=== PATIENT | female | born 1955 | race Caucasian/White ===

== ENCOUNTER → 2017-05-25 08:40 | Outpatient (CLI) | payer MEDICAID, SELFPAY ==
--- NOTE | 2017-05-25 09:30 | RAD_ITS ---
PROCEDURE: Fluoroscopic guided left shoulder Injection DATE: May 25, 2017. INDICATION: Female, 62 years old. Left shoulder pain. PHYSICIAN: Tushar Covington M.D. MEDICATIONS: 12 mg on that a methicillin and 4 cc of 1% lidocaine. 2% Lidocaine administered subcutaneously for local anesthesia. ACCESS SITE: Left shoulder. NEEDLE: 22-gauge spinal needle. FLUOROSCOPY TIME (if supplied): (0:35) minutes/seconds FINDINGS: The risks, benefits, and alternatives to the procedure were explained to the patient. The specific risks of bleeding, infection, and neurovascular injury were detailed and accepted. Witnessed informed consent was obtained. A 22-gauge spinal needle was positioned under radiographic fluoroscopic localization. Approximately 2 cc of Isovue-300 instilled for localization purposes. Medication was then injected. The patient tolerated the procedure well without any immediate complications. The patient was placed supine with head elevated and returned to the floor in stable condition. RAD/Inj/Asp Tod Jt Should/Hip/Knee IMPRESSION: 1. Successful fluoroscopic guided left shoulder injection. Electronically Signed: Tushar Covington MD at 10:21 EST Tel [phone], Service support ,
== END ==
PROVIDERS: Family Provider Family Medicine; PCP Family Medicine; Visit Provider Specialist
DX: M19.012 Primary osteoarthritis, left shoulder (principal)
CPT/HCPCS: 20610; 77002; J0702

== ENCOUNTER 2017-11-09 20:50 | Emergency (ER) | payer MEDICAID, SELFPAY ==
[2017-11-09 20:53] VITALS: BP 158/113; PULSE 90; RESP 18; TEMP 36.9; O2SAT 95; BMI 33.3
--- NOTE | 2017-11-09 20:54 | RAD_ITS ---
STUDY: X-RAY - RIGHT FOOT CLINICAL: Female, 62 years old. Trauma. Pain in fifth toe TECHNIQUE: 3 view(s) of the foot. COMPARISON: None. FINDINGS: There is no evidence of fracture or dislocation. There is a plantar calcaneal spur noted. There are no radiodense foreign bodies. RAD/Foot min 3 Views IMPRESSION: No fracture or dislocation. Plantar calcaneal spur. Electronically Signed: Ish Kaur, at 21:20 EDT Tel , Service support ,
[2017-11-09 21:11] VITALS: RESP 18
--- NOTE | 2017-11-09 21:55 | ED.VISSUMM ---
- ER Visit Summary Date of Service: 11/09/17 Chief Complaint: She presents with right foot pain after twist last night. She did fall has a left forearm abrasion but no significant pain in that region. No head injury. No loss consciousness. She feels normal other than the foot pain. Physical Examination: Normal exam, neurologically intact, no C-spine tenderness. Clear lungs. She has a small abrasion over left forearm. She has tenderness over the proximal fifth metatarsal region of her right foot. No ankle pain no knee pain no proximal fibular tenderness. Neurovascularly intact. Emergency Department Course and Treatment: X-rays negative patient will be treated with a postop shoe and analgesia he will be discharged stable condition follow-up with PCP Her stable condition Impression: [Right foot strain] This note was generated with [employer] dictation software. It may contain incorrect words, spelling, and punctuation that were not noted in review of the chart prior to signing ED Disposition - Plan for ED Patient: Disposition: Home or Assisted Living Chief Complaint: Lower Extremity Injury Instructions: ED Contusion Lower Ext Referrals: Alonzo Hahn DO [Primary Care Provider] - 3-5 Days
[2017-11-09] MEDS: HYDROcodone Bitartrate/Apap 5/325 Tablet PO (22:01)
[2017-11-09 22:04] VITALS: RESP 16
== END 2017-11-09 22:05 | disposition home or self-care (01) ==
PROVIDERS: Emergency Provider Emergency Medicine; Family Provider Family Medicine; PCP Family Medicine
DX: S96.911A Strain of unspecified muscle and tendon at ankle and foot level, right foot, initial encounter (principal); W01.10XA Fall on same level from slipping, tripping and stumbling with subsequent striking against unspecified object, initial encounter; Y93.9 Activity, unspecified; Y92.9 Unspecified place or not applicable; Y99.9 Unspecified external cause status; I10 Essential (primary) hypertension; J45.909 Unspecified asthma, uncomplicated
CPT/HCPCS: 73630; 99283

== ENCOUNTER 2017-11-12 17:15 | Emergency (ER) | payer MEDICAID, SELFPAY ==
[2017-11-12] VITALS (8 sets, daily range): BP systolic 87–182; BP diastolic 38–109; PULSE 86–113; RESP 14–20; TEMP 37.3; O2SAT 95–99; BMI 33.3
--- NOTE | 2017-11-12 17:55 | ED.VISSUMM ---
- ER Visit Summary Date of Service: 11/12/17 Chief Complaint: Suicidal ideation History of Present Illness: The patient is a 62 F presenting with suicidal ideation. She states that she is depressed and feeling overwhelmed. She states that she has had suicidal thoughts but denies plan. She has been fighting with her boyfriend. He states she has financial problems. She talked to the counseling center and was advised to come to the ED. States she does not want to go on. She had an overdose at age 58. She denies overdose today. Denies other complaints. Physical Examination: Vitals are stable. Patient is afebrile. Alert no acute distress. HEENT exam is unremarkable. Neck is supple. Lungs are clear and equal bilaterally. Heart is regular rate and rhythm. Abdomen is soft nontender nondistended. Extremities are unremarkable. Skin is warm and dry. No focal neurologic deficit. Depressed affect, suicidal ideation Remainder of exam is unremarkable. Emergency Department Course and Treatment: CBC, chemistries unremarkable other than BUN 19. Tox positive for barbiturates, benzos, cocaine. Alcohol negative. Patient is given Ativan and Vistaril for anxiety while in the emergency department. Discussed with counseling center for evaluation. Disposition: Per counseling center Impression: Suicidal ideation, anxiety This note was generated with [employer] dictation software. It may contain incorrect words, spelling, and punctuation that were not noted in review of the chart prior to signing ED Disposition - Plan for ED Patient: Chief Complaint: Mental Health Referrals: Alonzo Hahn DO [Primary Care Provider] -
[2017-11-12 18:15] LABS: Absolute Lymphocyte Count 3.49 X10^3/ul (0.83-4.51); Absolute Neutrophil Count 6.2 X10^3/uL (2.0-7.7); Basophil# 0.04 X10^3/uL; Basophil% 0.4 % (0-1); Eosinophil# 0.46 X10^3/uL; Eosinophils% 4.2 % (0-5); Hematocrit 44.7 % (37-47); Hemoglobin 14.8 g/dl (12.0-15.0); Lymphocyte # 3.49 X10^3/ul (4.0); Lymphocyte % 32.1 % (19-41); Mean Corp Hgb Conc 33.1 g/gl (32-36); Mean Corpuscular Hgb 31.3 pg (27.0-32.0); Mean Corpuscular Volume 94.5 fL (81-99); Mean Platelet Vol. 9.9 fl (6.2-12.0); Monocyte# 0.61 X10^3/uL; Monocyte% 5.6 % (0-10); Neutrophil # 6.18 X10^3/uL (2.7-7.7); Platelet Count 249 K/mm3 (150-450); RBC Distribution Width CV 13.5 % (11.6-14.6); RBC Distribution Width SD 46.5 fl (35.1-43.9); Red Blood Count 4.73 M/mm3 (4.2-5.4); White Blood Count 10.9 K/mm3 (4.4-11.0)
[2017-11-12 18:19] LABS: POSITIVE COUNT NO; POSITIVE DIFFERENTIAL NO; POSITIVE MORPHOLOGY NO
[2017-11-12 18:24] LABS: Anion Gap 5 (5-15); BUN 19 mg/dL (7-18); BUN/Creat Ratio 18.6 RATIO (10-20); Calcium,Total 8.6 mg/dL (8.5-10.1); Chloride 107 mmol/L (98-107); Creatinine, Serum 1.02 mg/dL (0.55-1.02); EST Glomerular Filtration Rate 58 mL/min (>60); Est Glom Filt Rate - Afr Amer 70 mL/min (>60); Estimated Creatinine Clearance 44.07 ml/min; Glucose 91 mg/dL (74-106); Potassium 4.1 mmol/L (3.5-5.1); Sodium Level 143 mmol/L (136-145)
[2017-11-12 18:35] LABS: Alcohol, Blood (Medical)-Serum < 3.0 mg/dL
[2017-11-12 18:40] LABS: Pregnancy, Serum, hCG Quali. NEGATIVE Negative (0-9 Nonpreg)
[2017-11-12] MEDS: LORazepam 1 MG Tablet PO (19:22)
[2017-11-12 20:24] LABS: Amphetamine Urine VISTA NEGATIVE (<1000 ng/mL); Barbiturate Urine VISTA POSITIVE (< 200 ng/mL); Benzodiazepine Urine VISTA POSITIVE (< 200 ng/mL); Cocaine Urine VISTA POSITIVE (< 300 ng/mL); Ecstacy Urine VISTA NEGATIVE (< 500 ng/mL); Methadone Urine VISTA NEGATIVE (< 300 ng/mL); PCP Urine VISTA NEGATIVE (< 25 ng/mL); THC Urine VISTA NEGATIVE (< 50 ng/mL); Vista UDS pH Range 5
[2017-11-13] VITALS: RESP 16
[2017-11-13] MEDS: LORazepam 1 MG Tablet PO (01:23)
--- NOTE | 2017-11-13 03:40 | NURSING ---
JJ SANTANA DOESN'T HAVE AVAILABILITY TILL NOON DID SET UP TRANSPORT THOUGH.
[2017-11-13 03:52] VITALS: PULSE 87; RESP 18; O2SAT 98
--- NOTE | 2017-11-13 05:04 | NURSING ---
6 attempts made to call report to [facility]
[2017-11-13 05:41] VITALS: BP 101/57; PULSE 76; RESP 18; TEMP 36.8; O2SAT 94
[2017-11-13 06:09] VITALS: BP 181/90; PULSE 76; RESP 18; O2SAT 97
[2017-11-13 07:00] VITALS: BP 166/97; PULSE 99; RESP 20; O2SAT 93
[2017-11-13] MEDS: amLODIPine 10 MG Tablet PO (07:25)
[2017-11-13] MEDS: Sertraline 50 MG Tablet PO (07:26)
[2017-11-13] MEDS: Lisinopril 20 MG Tablet PO (07:26)
== END 2017-11-13 07:44 ==
PROVIDERS: Emergency Provider Emergency Medicine; Family Provider Family Medicine; PCP Family Medicine
DX: R45.851 Suicidal ideations (principal); F41.9 Anxiety disorder, unspecified
CPT/HCPCS: 36415; 80048; 80307; 80320; 84703; 85025; 99285; G0480

== ENCOUNTER 2017-12-20 14:59 | Inpatient (IN) | payer MEDICAID, SELFPAY ==
[2017-12-20] VITALS (13 sets, daily range): BP systolic 106–167; BP diastolic 62–99; PULSE 91–122; RESP 14–28; TEMP 37.4–39.1; O2SAT 91–98; BMI 32.1; BMI 32.2; BMI 35.9
--- NOTE | 2017-12-20 15:12 | EKG12_ITS ---
Test Reason : Blood Pressure : / mmHG Vent. Rate : 114 BPM Atrial Rate : 114 BPM P-R Int : 124 ms QRS Dur : 084 ms QT Int : 308 ms P-R-T Axes : 036 065 060 degrees QTc Int : 424 ms Sinus tachycardia Nonspecific T wave abnormality Confirmed by TONY JONES, EVI ([id number]), editor at large HITESH MICHELLE ([id number]) on 12/23/2017 2:35:06 PM Referred By: Britni Bowman Confirmed By:EVI JIMENEZ MD
[2017-12-20 15:44] LABS: Mucous, Urine 0 SEEN /hpf (<or=2+); Red Blood Cells-Urine 0 SEEN /hpf (0-5)
[2017-12-20 15:50] LABS: Glucose, Dipstick Normal (Normal); Ketone-Dipstick Negative (Negative); Leukocyte Esterase-Dipstick 500 /ul (Negative); Nitrite-Dipstick Positive (Negative); Occult Blood-Urine 150 /ul (Negative); Protein-Dipstick 100 mg/dl (Negative); Urine Bilirubin Dipstick Negative (Negative); Urine Urobilinogen Normal (Normal); Urine pH 6.5 (5.0 - 8.0)
[2017-12-20 15:53] LABS: Color, Urine YELLOW (Yellow); Urine Clarity Cloudy (Clear)
[2017-12-20 15:59] LABS: White Blood Cells >100 SEEN /hpf (0-5)
[2017-12-20 16:00] LABS: Bacteria 3+ /hpf (None Seen); Squamous Epithelial Cells - UA 0-5 SEEN /hpf (5-10)
[2017-12-20 16:01] LABS: Transitional Epithelial - Ur 0 SEEN /hpf (0-5)
[2017-12-20] MEDS: Acetaminophen 325 MG Tablet 650 MG PO ×2 (16:22→23:41)
[2017-12-20] MEDS: 0.9% Normal Saline 1,000 ML 250 ML IV ×2 (16:22→19:11)
[2017-12-20 16:29] LABS: Absolute Lymphocyte Count 1.26 X10^3/ul (0.83-4.51); Absolute Neutrophil Count 16.7 X10^3/uL (2.0-7.7); Basophil# 0.01 X10^3/uL; Basophil% 0.1 % (0-1); Eosinophil# 0.04 X10^3/uL; Eosinophils% 0.2 % (0-5); Hemoglobin 12.1 g/dl (12.0-15.0); Lymphocyte # 1.26 X10^3/ul (4.0); Lymphocyte % 6.5 % (19-41); Mean Corp Hgb Conc 34.6 g/gl (32-36); Mean Corpuscular Hgb 31.7 pg (27.0-32.0); Mean Corpuscular Volume 91.6 fL (81-99); Mean Platelet Vol. 9.5 fl (6.2-12.0); Monocyte# 1.22 X10^3/uL; Monocyte% 6.3 % (0-10); Neutrophil # 16.68 X10^3/uL (2.7-7.7); Platelet Count 248 K/mm3 (150-450); RBC Distribution Width CV 13.1 % (11.6-14.6); RBC Distribution Width SD 43.7 fl (35.1-43.9); Red Blood Count 3.82 M/mm3 (4.2-5.4); White Blood Count 19.4 K/mm3 (4.4-11.0)
[2017-12-20 16:32] LABS: POSITIVE COUNT NO; POSITIVE DIFFERENTIAL NO; POSITIVE MORPHOLOGY NO
[2017-12-20 16:36] LABS: International Normalized Ratio 1.1; Prothrombin Time (Protime)PT. 13.8 SECONDS (11.7-14.9)
[2017-12-20 16:37] LABS: Partial Thromboplast Time 31.9 Seconds (24.1-36.2)
[2017-12-20 16:39] LABS: ALB/GLOB Ratio 0.5 RATIO (0.9-2.4); AST(SGOT) 17 U/L (15-37); Alanine Aminotransfer ALT/SGPT 32 U/L (13-56); Albumin, Serum 2.5 g/dL (3.2-5.0); Alkaline Phosphatase 148 U/L (45-117); Anion Gap 10 (5-15); BUN 24 mg/dL (7-18); BUN/Creat Ratio 17.4 RATIO (10-20); Calcium,Total 8.1 mg/dL (8.5-10.1); Chloride 101 mmol/L (98-107); Creatinine, Serum 1.38 mg/dL (0.55-1.02); EST Glomerular Filtration Rate 41 mL/min (>60); Est Glom Filt Rate - Afr Amer 49 mL/min (>60); Estimated Creatinine Clearance 32.57 ml/min; Globulin 4.7 g/dL (2.2-4.2); Glucose 114 mg/dL (74-106); Potassium 3.4 mmol/L (3.5-5.1); Protein, Total 7.2 g/dL (6.4-8.2); Sodium Level 132 mmol/L (136-145)
[2017-12-20] MEDS: Ceftriaxone 1 GM/50 ML BAG IV (16:49)
--- NOTE | 2017-12-20 17:22 | ED.DCSUM_ITS ---
- ER Visit Summary Date of Service: 12/20/17 Chief Complaint: Fever, chills urinary symptoms and back pain History of Present Illness: The patient is a 62 F who presents with infectious symptoms that started 5 days ago. She complains of dysuria, frequency, urgency and fever. She now complains of back/flank pain. She reports nausea without vomiting or diarrhea. She does complain of mild bifrontal headache. She denies photophobia, neck pain or neck stiffness. She denies any ocular, visual or auditory symptoms. She does report palpitations. She reports dyspnea, cough. The cough is nonproductive. She has history of COPD. She does complain of generalized weakness and depression. Past medical history COPD, hypertension, depression and osteoarthritis Physical Examination: Vital signs remarkable for a blood pressure 167/99 temperature 101.3 heart rate of 122 and respiratory rate of 28. She does appear ill. Head is atraumatic normocephalic. Pupils are equal round reactive. Extraocular muscles are intact. TMs are pearly white with landmarks noted. Nares patent with no drainage. Posterior pharynx without erythema or exudate. Uvula is midline. There is no dysphonia or dysphasia. Trachea is midline. There is no stridor with auscultation of the neck. Heart is rapid and regular without murmur, gallop or rub. Lungs reveal no wheeze, rales or rhonchi. Abdomen is remarkable for superpubic tenderness. There is right CVA tenderness. There is no evidence of cellulitis or decubiti. Neuro exam is nonfocal. She has a depressed affect. Test Results: White count is elevated 19.4 thousand with 86 segs. Electro panel reveals mild abnormalities with a sodium 132, potassium 3.4, BUN 24 and a creatinine 1.38. Creatinine on November 12, 2017 was 1.02. Albumin is low, 2.5 coags normal. Urine is positive for leukoesterase nitrites and blood with greater than 100 WBCs and 3+ bacteria. Emergency Department Course and Treatment: Patient meets sepsis criteria. Lactate and blood cultures were obtained because of concern for severe sepsis. She received 1 L of normal saline and 1 g of Rocephin. I was informed at 1710 that she is having increased back pain and she was administered 2 mg of morphine. Limited opiate use in light of recent positive tox screen. She also received 650 mg of Tylenol upon presentation. Treatment Plan: Patient will require admission for IV antibiotics Disposition: Disposition after lactate has been resulted since this will determine appropriate unit. Impression: 1. Urosepsis 2. Sinus tachycardia documented on EKG 3. Acute renal insufficiency 4. Mild hypokalemia 5. Mild hyponatremia 6. Malnutrition 7. Asymptomatic hypertension in a hypertensive patient This note was generated with [employer] dictation software. It may contain incorrect words, spelling, and punctuation that were not noted in review of the chart prior to signing ED Disposition - Plan for ED Patient: Chief Complaint: Nausea/Vomiting Referrals: Alonzo Hahn DO [Primary Care Provider] -
[2017-12-20] MEDS: Morphine 2 MG/ML Syringe IV (17:23)
[2017-12-20 17:53] LABS: Lactic Acid 0.6 mmol/L (0.4-2.0)
--- NOTE | 2017-12-20 18:56 | HP.PCM_ITS ---
Problem List (1) Sepsis Status: Acute Qualifiers: Sepsis type: sepsis due to unspecified organism Qualified Code(s): A41.9 - Sepsis, unspecified organism (2) UTI (urinary tract infection) Status: Acute Qualifiers: Urinary tract infection type: acute cystitis (3) YONIS (acute kidney injury) Status: Acute (4) COPD (chronic obstructive pulmonary disease) Status: Chronic Qualifiers: COPD type: unspecified COPD Qualified Code(s): J44.9 - Chronic obstructive pulmonary disease, unspecified (5) GERD (gastroesophageal reflux disease) Status: Chronic Qualifiers: Esophagitis presence: esophagitis presence not specified Qualified Code(s) : K21.9 - Gastro-esophageal reflux disease without esophagitis (6) OA (osteoarthritis) of knee Status: Chronic Qualifiers: Osteoarthritis type: unspecified Laterality: unspecified laterality Qualified Code(s): M17.10 - Unilateral primary osteoarthritis, unspecified knee (7) HTN (hypertension) Status: Chronic Qualifiers: Hypertension type: essential hypertension Qualified Code(s): I10 - Essential (primary) hypertension (8) Mixed anxiety and depressive disorder Status: Chronic (9) Obesity Status: Chronic Qualifiers: Obesity type: due to excess calories Obesity classification: adult class 1 (BMI 30 - 34.9) (10) Nicotine dependence Status: Chronic Qualifiers: Nicotine product type: cigarettes (11) history of polysubstance abuse Status: Chronic History of Present Illness Date of Admission: 12/20/17 Chief Complaint: Malaise, weakness, debility, Dysuria, F/C The patient is a 62 y/o F w/ PMHs: Chronic COPD, Ongoing Tobacco Use, HTN, Anxiety and Depression, Obesity who presents to the [facility] ED on 12/20/17 with history of approximately 6 day history of ongoing mild bilateral temporal headache, malaise, fatigue with dysuria with pressure sensation as well as frequency and suprapubic discomfort with onset of fever and chills over the last 24 hours prompting ED evaluation. The emergency room workup included T102.3 upon presentation--> 100.3 following Tylenol, heart rate 109, BP 132/92, respiratory rate initially 28--> 16, 96% on room air, CBC with WBC 19.4, hemoglobin 1312.1, platelet 248 with left shift, unremarkable coags, CMP with sodium 132, potassium 3.4, BUN 24/creatinine 1.38, glucose 114, lactic acid 0.6 , alkaline phosphatase 148, urinalysis remarkable and concerning for urinary tract infection with pending urine culture and blood culture ?2 per ED. In the emergency room patient administered normal saline 1 L, morphine 2 mg IV ?1, IV Rocephin in addition to oral Tylenol. Past Medical History Past Medical History (Chronic Problems): Chronic Problems Depression (Chronic) COPD (chronic obstructive pulmonary disease) (Chronic) GERD (gastroesophageal reflux disease) (Chronic) OA (osteoarthritis) of knee (Chronic) HTN (hypertension) (Chronic) Mixed anxiety and depressive disorder (Chronic) Obesity (Chronic) Nicotine dependence (Chronic) history of polysubstance abuse (Chronic) Allergies codeine Allergy (Verified 11/12/17 17:17) Anaphylaxis CHEST PAIN fentanyl Allergy (Verified 11/12/17 17:17) Rash ketorolac tromethamine [From Toradol] Allergy (Verified 11/12/17 17:17) Hives metoclopramide HCl [From Reglan] Allergy (Verified 11/12/17 17:17) Swelling promethazine HCl [From Phenergan] Allergy (Verified 11/12/17 17:17) Itching cyclobenzaprine HCl [From Flexeril] Adverse Reaction (Verified 11/12/17 17:17) Other MAKES LEGS AND ARMS FEEL LIKE THEY'RE CRAWLING diphenhydramine HCl [From Benadryl] Adverse Reaction (Verified 11/12/17 17:17) Other MAKES LEGS CRAWL Penicillins Adverse Reaction (Verified 11/12/17 17:17) Nausea Sulfa (Sulfonamide Antibiotics) Adverse Reaction (Verified 11/12/17 17:17) Nausea Home Medications: Ambulatory Orders Medication Instructions Recorded Amlodipine [Norvasc] 10 mg PO DAILY 10/05/16 Lisinopril [Zestril] 20 mg PO DAILY 10/05/16 Sertraline HCl [Zoloft] 50 mg PO DAILY 01/22/17 Zolpidem Tartrate [Ambien] 10 mg PO QHS PRN 12/20/17 Surgical History: cholecystectomy, hysterectomy, tonsillectomy, - - R Shoulder surgery, Arthroscopic knee surgery, R TKR. 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 Tobacco Use: Cigarettes Alcohol: Sober - Sober ?2 years. Drugs: - - Prior history of cocaine usage, clean ?2 years. - *Family History Maternal History Items: Stroke Paternal History Items: - - Father with a history of hypertension, heart disease and [place]. Review of Systems Constitutional: Reports: Anorexia, Chills, Fever, Malaise, Weakness, Fatigue. Denies: Weight Change HEENT: Reports: Head Aches. Denies: Sinus Congestion, Sinus Drainage Cardiovascular: Denies: Chest Pain, Palpitations Respiratory: Denies: Cough, Shortness of breath at rest, Sputum production Gastrointestinal: Reports: Abdominal Pain, Nausea. Denies: Vomiting Genitourinary: Denies: Dysuria Musculoskeletal: Reports: Back Pain. Denies: Joint Pain, Joint Tenderness Skin: Denies: Rash, Wounds Neurological: Denies: Numbness, Tingling, Focal weakness Psychiatric: Reports: Anxiety, Depression. Denies: Homicidal Ideations, Suicidal Ideations Hematologic/ Lymphatic: Denies: Easy Bruising, Easy Bleeding VTE Information - Inpt Only VTE Present on Admission: No VTE Mechan Device Prophylaxis: SCD's VTE Pharm Prophylaxis ordered?: Yes Patient Problems: Active and Suspected Problems Sepsis (Acute) UTI (urinary tract infection) (Acute) YONIS (acute kidney injury) (Acute) Subjective: Laying in the ED bed, fatigued appearance, notes ongoing suprapubic discomfort with ED placed Rudd catheter noted. Objective: Physical Examination: General: awake, alert, oriented x 3 and cooperative, seated upright in the ED bed in no apparent distress notably fatigued and ill-appearing. Skin: normal color, turgor, no icterus, cyanosis. HEENT: AT/NC, EOMI, PERRLA, dry MM, no carotid bruits or JVD noted. Lungs: CTA bilaterally, moderate effort, mild decrease BL bases, no rales, ronchi or wheezing. Heart: Tachycardiac with regular rhythm; no gallop, rub audible. Abdomen: soft, obese, suprapubic TTP, ND, normal BS, no HSM. Extremities: no cyanosis, clubbing, or edema. Neurological: patient awake, alert, oriented x 3; cognitive function intact; pupils equally reactive to light and accomodation; cranial nerves II-XII grossly normal, moving all 4 extremities, no focal deficits, strength severely globally decreased secondary to acute presentation. Psychiatric: affect appears flat, no acute evidence of depressive or anxiety feelings. - Physical Exam Vital Signs Temp Pulse Resp BP Pulse Ox 102.3 F H 91 19 H 128/65 H 95 12/20/17 16:24 12/20/17 18:03 12/20/17 18:03 12/20/17 18:03 12/20/17 18:03 Oxygen Flow Rate (L/min) 2 Oxygen Delivery Method Room Air Weight: 176 lb Body Mass Index (BMI) 32.1 Laboratory Tests Past 24 Hrs 12/20/17 12/20/17 12/20/17 15:35 16:12 16:12 WBC 19.4 H RBC 3.82 L Hgb 12.1 Hct 35.0 L MCV 91.6 MCH 31.7 MCHC 34.6 RDW 13.1 RDW Differential 43.7 Plt Count 248 MPV 9.5 Immature Gran % (Auto) 0.900 Neut % (Auto) 86.0 H Lymph % (Auto) 6.5 L Ness % (Auto) 6.3 Eos % (Auto) 0.2 Baso % (Auto) 0.1 Absolute Neuts (auto) 16.7 H Absolute Lymphs (auto) 1.26 Total Counted Not Reportable PT 13.8 INR 1.1 APTT 31.9 Sodium Potassium Chloride Carbon Dioxide Anion Gap BUN Creatinine Estim Creat Clear Calc Est GFR (MDRD) Af Amer Est GFR (MDRD) Non-Af BUN/Creatinine Ratio Glucose Lactic Acid Calcium Total Bilirubin AST ALT Alkaline Phosphatase Total Protein Albumin Globulin Albumin/Globulin Ratio Urine Color YELLOW Urine Clarity Cloudy Urine pH 6.5 Ur Specific Trilla 1.010 Urine Protein 100 H Urine Glucose (UA) Normal Urine Ketones Negative Urine Occult Blood 150 H Urine Nitrite Positive H Urine Bilirubin Negative Urine Urobilinogen Normal Ur Leukocyte Esterase 500 H Urine RBC 0 SEEN Urine WBC >100 SEEN Ur Squamous Epith Cells 0-5 SEEN Ur Transition Epith Cell 0 SEEN Urine Bacteria 3+ Urine Mucus 0 SEEN 12/20/17 12/20/17 12/20/17 16:12 16:12 17:25 WBC RBC Hgb Hct MCV MCH MCHC RDW RDW Differential Plt Count MPV Immature Gran % (Auto) Neut % (Auto) Lymph % (Auto) Ness % (Auto) Eos % (Auto) Baso % (Auto) Absolute Neuts (auto) Absolute Lymphs (auto) Total Counted PT INR APTT Sodium 132 L Potassium 3.4 L Chloride 101 Carbon Dioxide 21.0 Anion Gap 10 BUN 24 H Creatinine 1.38 H Estim Creat Clear Calc 32.57 Est GFR (MDRD) Af Amer 49 L Est GFR (MDRD) Non-Af 41 L BUN/Creatinine Ratio 17.4 Glucose 114 H Lactic Acid Cancelled 0.6 Calcium 8.1 L Total Bilirubin 0.50 AST 17 ALT 32 Alkaline Phosphatase 148 H Total Protein 7.2 Albumin 2.5 L Globulin 4.7 H Albumin/Globulin Ratio 0.5 L Urine Color Urine Clarity Urine pH Ur Specific Trilla Urine Protein Urine Glucose (UA) Urine Ketones Urine Occult Blood Urine Nitrite Urine Bilirubin Urine Urobilinogen Ur Leukocyte Esterase Urine RBC Urine WBC Ur Squamous Epith Cells Ur Transition Epith Cell Urine Bacteria Urine Mucus Assessment/Plan All Active Problems Sepsis (Acute) UTI (urinary tract infection) (Acute) YONIS (acute kidney injury) (Acute) Acute exacerbation of chronic obstructive pulmonary disease (COPD) (Resolved) The patient is a 62 y/o F w/ PMHs: Chronic COPD, Ongoing Tobacco Use, HTN, Anxiety and Depression, Obesity who presents to the [facility] ED on 12/20/17 with history of approximately 6 day history of ongoing mild bilateral temporal headache, malaise, fatigue with dysuria with pressure sensation as well as frequency and suprapubic discomfort with onset of fever and chills over the last 24 hours prompting ED evaluation. (1) Acute Sepsis secondary to Acute Urinary Tract Infection: ED presentation w/ elevated WBC, tachycardic, febrile, UA notable. Will admit to [facility] given normal LA level, UA upon ED evaluation remarkable, pending UCx, admission CBC w/ WBC 19.4, continue IVFs, monitor I/Os, continue IV Rocephin w/ transition as able pending sensitivities and speciation. Bld cx x 2 obtained in the ED. (2) Acute kidney injury: Secondary to acute presentation w/ sepsis and UTI. Admission BUN/Cr 24/1.38, prior baseline creatinine noted to be 0.9. Will hydrate, hold nephrotoxic medications and repeat chemistry in AM. If no improvement would plan FeNa assessment. (3) Hypokalemia: Admission K+ 3.4, supplementation given, repeat level in AM. (4) Chronic COPD: ATC duonebs, PRN albuterol, HOB, IS parameters. (5) Tobacco Abuse: Encouraged cessation, inpatient consultation per RT, NR if desired. (6) Hypertension: Continue home regimen including Norvasc, holding lisinopril given YONIS with restart once appropriate with hold parameters. (7) Anxiety and depression: We will continue home sertraline regimen, given lethargic presentation will hold Ambien at this time but once appropriate may restart as patient notes insomnia is an issue. (8) Obesity: Weight loss and lifestyle changes encouraged. (9) DVT prophylaxis: SCD, Lovenox renally dosed. Code Visit Inpatient E&M: 39983 Init Hosp L3
[2017-12-20] MEDS: 0.9% Normal Saline 1,000 ML 150 ML IV (20:00)
[2017-12-21] VITALS (17 sets, daily range): BP systolic 135–175; BP diastolic 69–101; PULSE 82–103; RESP 16–22; TEMP 37–38.2; O2SAT 95–98
--- NOTE | 2017-12-21 00:36 | NURSING ---
Pt voided 200cc at 2320, nurse unable to find working bladder scanner till midnight. Scanned amount at midnight was 166.
[2017-12-21] MEDS: Nystatin Powder 15gm Bottle 1 APPLIC TOPICAL ×3 (03:15→21:42)
[2017-12-21] MEDS: 0.9% Normal Saline 1,000 ML 150 ML IV ×2 (03:15→08:28)
[2017-12-21] MEDS: Acetaminophen 325 MG Tablet 650 MG PO ×3 (05:49→17:55)
[2017-12-21 06:18] LABS: Absolute Lymphocyte Count 1.27 X10^3/ul (0.83-4.51); Absolute Neutrophil Count 13.2 X10^3/uL (2.0-7.7); Basophil# 0.03 X10^3/uL; Basophil% 0.2 % (0-1); Eosinophil# 0.15 X10^3/uL; Eosinophils% 0.9 % (0-5); Hematocrit 34.6 % (37-47); Hemoglobin 11.7 g/dl (12.0-15.0); Lymphocyte # 1.27 X10^3/ul (4.0); Lymphocyte % 7.8 % (19-41); Mean Corp Hgb Conc 33.8 g/gl (32-36); Mean Corpuscular Hgb 31.5 pg (27.0-32.0); Mean Corpuscular Volume 93.3 fL (81-99); Monocyte# 1.44 X10^3/uL; Monocyte% 8.8 % (0-10); Neutrophil # 13.21 X10^3/uL (2.7-7.7); Neutrophil % 80.8 % (47-70); Platelet Count 247 K/mm3 (150-450); RBC Distribution Width CV 12.9 % (11.6-14.6); RBC Distribution Width SD 42.5 fl (35.1-43.9); Red Blood Count 3.71 M/mm3 (4.2-5.4); White Blood Count 16.3 K/mm3 (4.4-11.0)
[2017-12-21 06:19] LABS: POSITIVE COUNT NO; POSITIVE DIFFERENTIAL NO; POSITIVE MORPHOLOGY NO
[2017-12-21 06:26] LABS: Anion Gap 8 (5-15); BUN 18 mg/dL (7-18); BUN/Creat Ratio 16.4 RATIO (10-20); Chloride 111 mmol/L (98-107); EST Glomerular Filtration Rate 53 mL/min (>60); Est Glom Filt Rate - Afr Amer 64 mL/min (>60); Estimated Creatinine Clearance 40.86 ml/min; Glucose 103 mg/dL (74-106); Potassium 4.3 mmol/L (3.5-5.1); Sodium Level 138 mmol/L (136-145)
[2017-12-21] MEDS: proMETHazine 25 MG/ML Syringe 12.5 MG IV (06:40)
[2017-12-21] MEDS: 0.9% NaCl Peripheral Flush Adult/Peds IV (06:41)
[2017-12-21] MEDS: Enoxaparin 30 MG/0.3 ML Syringe SC (08:28)
[2017-12-21] MEDS: amLODIPine 10 MG Tablet PO (08:29)
[2017-12-21] MEDS: Sertraline 50 MG Tablet PO (08:30)
[2017-12-21] MEDS: Ceftriaxone 1 GM/50 ML BAG IV (08:31)
--- NOTE | 2017-12-21 08:56 | NURSING ---
Offered bath, pt states would like to shower after lunch. Clean linens in room. Pt able to eat some eggs and toast without nausea. C/O throbbing head, stomach, and lower back pain at intensity level 8. Notified ANAYA Escudero of pt pain level. Pt resting now, siderails up X2, call light in reach. No further needs at this time.
--- NOTE | 2017-12-21 09:50 | CASEMGMT ---
ANAYA CRUZ Face to Face with patient for initial transition planning/care coordination assessment. RN CM introduced self and role at [facility]. Patient lying in bed, alert and oriented. Patient willing to participate in assessment and is able to answer all questions appropriately. Care providers, pharmacy, and demographics verified. See link attached. Patient wishes to discharge home, denies need for home health at this time. Patient states she has no further needs or concerns at this time. CM to follow for discharge planning needs that may arise. Disposition Plan: Patient to discharge home with family support and follow-up plans in place. Jess AHN, RN, CM
--- NOTE | 2017-12-21 12:27 | PCM.PN.HOSP ---
Patient Problems: Active and Suspected Problems Sepsis (Acute) UTI (urinary tract infection) (Acute) YONIS (acute kidney injury) (Acute) Subjective: Complains of headache, suprapubic abdominal pain and back pain. Vitals/I&O's: Vital Signs Temp Pulse Resp BP Pulse Ox 37.2 C 89 20 H 158/101 H 98 12/21/17 12:08 12/21/17 12:10 12/21/17 12:08 12/21/17 12:08 12/21/17 12:10 Oxygen Delivery Method Room Air Weight: 89.1 kg Body Mass Index (BMI) 35.9 Intake and Output for Last 24 Hours 12/19/17 12/20/17 12/21/17 23:59 23:59 23:59 Intake Total 2139 / 2139 Output Total 2200 / 1550 Balance -61 / 589 General: Alert, No apparent distress HEENT: Atraumatic, Normocephalic Oral: Moist Mucosa, No Gingival or Mucosal Lesions/ Ulcerations Neck: No Nodes, Thyroid Normal Size and Texture Lungs: Clear to auscultation, Normal air movement, No rhonchi, No wheeze Cardiovascular: Regular rate, Regular Rhythm, Normal S1, Normal S2, No murmurs Abdomen: Bowel Sounds Present, Soft, Non-Distended, No Hepato-splenomegaly, - - suprapubic abdominal pain Extremities: No edema, No Calf Tenderness Skin: No rashes, No breakdown Musculoskeletal: No Tenderness to Palpation of Joints or Extremities, No Muscle Wasting, - - vertebral paraspinal tenderness. Psych/Mental Status: Normal Affect, Appropriate Laboratory Results 12/21/17 05:40: WBC 16.3 H, RBC 3.71 L, Hgb 11.7 L, Hct 34.6 L, MCV 93.3, MCH 31.5, MCHC 33.8, RDW 12.9, RDW Differential 42.5, Plt Count 247, MPV 10.0, Immature Gran % (Auto) 1.500 H, Neut % (Auto) 80.8 H, Lymph % (Auto) 7.8 L, [place] % (Auto) 8.8, Eos % (Auto) 0.9, Baso % (Auto) 0.2, Absolute Neuts (auto) 13.2 H, Absolute Lymphs (auto) 1.27, Total Counted Not Reportable 12/21/17 05:40: Sodium 138, Potassium 4.3, Chloride 111 H, Carbon Dioxide 19.0 L, Anion Gap 8, BUN 18, Creatinine 1.10 H, Estim Creat Clear Calc 40.86, Est GFR (MDRD) Af Amer 64, Est GFR (MDRD) Non-Af 53 L, BUN/Creatinine Ratio 16.4, Glucose 103, Calcium 8.0 L Current Medications Acetaminophen (Tylenol) 650 mg PO Q6H PRN PRN PRN Reason: Mild Pain (scale 0-3)/T>100.7 Last Admin: 12/21/17 05:49 Dose: 650 mg Al Hydroxide/Mg Hydroxide (Mylanta Ii) 30 ml PO Q6H PRN PRN PRN Reason: Gastric burning Albuterol Sulfate (Ventolin Aerosols) 2.5 mg INHALATION Q2H PRN PRN PRN Reason: Dyspnea, wheezing Albuterol/Ipratropium (Duoneb) 3 ml INHALATION Q6HWA.RT [facility] Last Admin: 12/21/17 07:22 Dose: Not Given Amlodipine Besylate (Norvasc) 10 mg PO DAILY [facility] Last Admin: 12/21/17 08:29 Dose: 10 mg Enoxaparin Sodium (Lovenox) 30 mg SC DAILY@1000 [facility] Last Admin: 12/21/17 08:28 Dose: 30 mg Sodium Chloride () 1,000 mls @ 150 mls/hr IV .Q6H40M [facility] Last Admin: 12/21/17 08:28 Dose: 150 mls/hr Ceftriaxone Sodium (Rocephin) 1 gm in 50 mls @ 100 mls/hr IV Q24 [facility] Last Admin: 12/21/17 08:31 Dose: 100 mls/hr Magnesium Hydroxide (Milk Of Magnesia) 30 ml PO DAILY PRN PRN PRN Reason: Constipation Nicotine (Nicoderm Cq (Pbkc)) 7 mg TRANSDERM. DAILY [facility] Last Admin: 12/21/17 08:29 Dose: 7 mg Nutritional Formula (Lactose Free) (Ensure Enlive) 120 ml PO 4X/DAY [facility] Last Admin: 12/21/17 08:28 Dose: Not Given Nystatin (Mycostatin Powder) 1 applic TOPICAL TID [facility] PRN Reason: Protocol Last Admin: 12/21/17 03:15 Dose: 1 applicatio Ondansetron HCl (Zofran) 4 mg IV Q8H PRN PRN PRN Reason: NAUSEA Promethazine HCl (Phenergan) 12.5 mg IV Q6H PRN PRN PRN Reason: NAUSEA/VOMITING Last Admin: 12/21/17 06:40 Dose: 12.5 mg Sertraline HCl (Zoloft) 50 mg PO DAILY [facility] Last Admin: 12/21/17 08:30 Dose: 50 mg Sodium Chloride () 5 - 30 ml IV UD PRN PRN Reason: SALINE FLUSH Last Admin: 12/21/17 06:41 Dose: 10 ml Medical Necessity - Tobacco Use Smoking Status: Current every day smoker Tobacco Use: Cigarettes Assessment/Plan All Active Problems Sepsis (Acute) UTI (urinary tract infection) (Acute) YONIS (acute kidney injury) (Acute) Acute exacerbation of chronic obstructive pulmonary disease (COPD) (Resolved) 1. UTI on CTX follow up cultures 2. Sepsis POA 2/2 UTI 3. Vertebral paraspinal muscle tenderness no narcotics Flexeril 4. Migraine maybe caffeine-withdrawal headache tylenol, NSAIDs 5. YONIS improved monitor 6. DVT proph: LMWH. Code Visit Inpatient E&M: 68429 Subs Hosp L2
--- NOTE | 2017-12-21 12:33 | PN_ITS ---
Patient Problems: Active and Suspected Problems Sepsis (Acute) UTI (urinary tract infection) (Acute) YONIS (acute kidney injury) (Acute) Subjective: Complains of headache, suprapubic abdominal pain and back pain. Vitals/I&O's: Vital Signs Temp Pulse Resp BP Pulse Ox 37.2 C 89 20 H 158/101 H 98 12/21/17 12:08 12/21/17 12:10 12/21/17 12:08 12/21/17 12:08 12/21/17 12:10 Oxygen Delivery Method Room Air Weight: 89.1 kg Body Mass Index (BMI) 35.9 Intake and Output for Last 24 Hours 12/19/17 12/20/17 12/21/17 23:59 23:59 23:59 Intake Total 2139 / 2139 Output Total 2200 / 1550 Balance -61 / 589 General: Alert, No apparent distress HEENT: Atraumatic, Normocephalic Oral: Moist Mucosa, No Gingival or Mucosal Lesions/ Ulcerations Neck: No Nodes, Thyroid Normal Size and Texture Lungs: Clear to auscultation, Normal air movement, No rhonchi, No wheeze Cardiovascular: Regular rate, Regular Rhythm, Normal S1, Normal S2, No murmurs Abdomen: Bowel Sounds Present, Soft, Non-Distended, No Hepato-splenomegaly, - - suprapubic abdominal pain Extremities: No edema, No Calf Tenderness Skin: No rashes, No breakdown Musculoskeletal: No Tenderness to Palpation of Joints or Extremities, No Muscle Wasting, - - vertebral paraspinal tenderness. Psych/Mental Status: Normal Affect, Appropriate Laboratory Results 12/21/17 05:40: WBC 16.3 H, RBC 3.71 L, Hgb 11.7 L, Hct 34.6 L, MCV 93.3, MCH 31.5, MCHC 33.8, RDW 12.9, RDW Differential 42.5, Plt Count 247, MPV 10.0, Immature Gran % (Auto) 1.500 H, Neut % (Auto) 80.8 H, Lymph % (Auto) 7.8 L, [place] % (Auto) 8.8, Eos % (Auto) 0.9, Baso % (Auto) 0.2, Absolute Neuts (auto) 13.2 H, Absolute Lymphs (auto) 1.27, Total Counted Not Reportable 12/21/17 05:40: Sodium 138, Potassium 4.3, Chloride 111 H, Carbon Dioxide 19.0 L , Anion Gap 8, BUN 18, Creatinine 1.10 H, Estim Creat Clear Calc 40.86, Est GFR (MDRD) Af Amer 64, Est GFR (MDRD) Non-Af 53 L, BUN/Creatinine Ratio 16.4, Glucose 103, Calcium 8.0 L Current Medications Acetaminophen (Tylenol) 650 mg PO Q6H PRN PRN PRN Reason: Mild Pain (scale 0-3)/T>100.7 Last Admin: 12/21/17 05:49 Dose: 650 mg Al Hydroxide/Mg Hydroxide (Mylanta Ii) 30 ml PO Q6H PRN PRN PRN Reason: Gastric burning Albuterol Sulfate (Ventolin Aerosols) 2.5 mg INHALATION Q2H PRN PRN PRN Reason: Dyspnea, wheezing Albuterol/Ipratropium (Duoneb) 3 ml INHALATION Q6HWA.RT [facility] Last Admin: 12/21/17 07:22 Dose: Not Given Amlodipine Besylate (Norvasc) 10 mg PO DAILY [facility] Last Admin: 12/21/17 08:29 Dose: 10 mg Enoxaparin Sodium (Lovenox) 30 mg SC DAILY@1000 [facility] Last Admin: 12/21/17 08:28 Dose: 30 mg Sodium Chloride () 1,000 mls @ 150 mls/hr IV .Q6H40M [facility] Last Admin: 12/21/17 08:28 Dose: 150 mls/hr Ceftriaxone Sodium (Rocephin) 1 gm in 50 mls @ 100 mls/hr IV Q24 [facility] Last Admin: 12/21/17 08:31 Dose: 100 mls/hr Magnesium Hydroxide (Milk Of Magnesia) 30 ml PO DAILY PRN PRN PRN Reason: Constipation Nicotine (Nicoderm Cq (Pbkc)) 7 mg TRANSDERM. DAILY [facility] Last Admin: 12/21/17 08:29 Dose: 7 mg Nutritional Formula (Lactose Free) (Ensure Enlive) 120 ml PO 4X/DAY [facility] Last Admin: 12/21/17 08:28 Dose: Not Given Nystatin (Mycostatin Powder) 1 applic TOPICAL TID [facility] PRN Reason: Protocol Last Admin: 12/21/17 03:15 Dose: 1 applicatio Ondansetron HCl (Zofran) 4 mg IV Q8H PRN PRN PRN Reason: NAUSEA Promethazine HCl (Phenergan) 12.5 mg IV Q6H PRN PRN PRN Reason: NAUSEA/VOMITING Last Admin: 12/21/17 06:40 Dose: 12.5 mg Sertraline HCl (Zoloft) 50 mg PO DAILY [facility] Last Admin: 12/21/17 08:30 Dose: 50 mg Sodium Chloride () 5 - 30 ml IV UD PRN PRN Reason: SALINE FLUSH Last Admin: 12/21/17 06:41 Dose: 10 ml Medical Necessity - Tobacco Use Smoking Status: Current every day smoker Tobacco Use: Cigarettes Assessment/Plan All Active Problems Sepsis (Acute) UTI (urinary tract infection) (Acute) YONIS (acute kidney injury) (Acute) Acute exacerbation of chronic obstructive pulmonary disease (COPD) (Resolved) 1. UTI * on CTX * follow up cultures 2. Sepsis * POA * 2/2 UTI 3. Vertebral paraspinal muscle tenderness * no narcotics * Flexeril 4. Migraine * maybe caffeine-withdrawal headache * tylenol, NSAIDs 5. YONIS * improved * monitor 6. DVT proph: LMWH. Code Visit Inpatient E&M: 58902 Subs Hosp L2
[2017-12-21] MEDS: Ipratropium/Albuterol Sulfate 3 ML AMPUL.NEB INHALATION ×2 (13:52→19:33)
--- NOTE | 2017-12-21 13:55 | NURSING ---
Pt reports feeling febrile. Temp measured at 100.5. Pt received Tylenol at 1247. Will continue to monitor changes in temp.
[2017-12-22] VITALS (7 sets, daily range): BP systolic 152–175; BP diastolic 75–94; PULSE 73–102; RESP 16–18; TEMP 36.8–37.6; O2SAT 93–98
[2017-12-22] MEDS: Acetaminophen 325 MG Tablet 650 MG PO ×3 (02:18→14:18)
[2017-12-22] MEDS: Ondansetron 4 MG/2 ML Vial IV (02:18)
[2017-12-22] MEDS: 0.9% NaCl Peripheral Flush Adult/Peds IV ×3 (02:19→17:12)
[2017-12-22 07:12] LABS: Hematocrit 33.9 % (37-47); Hemoglobin 11.8 g/dl (12.0-15.0); Mean Corp Hgb Conc 34.8 g/gl (32-36); Mean Corpuscular Hgb 32.2 pg (27.0-32.0); Mean Corpuscular Volume 92.4 fL (81-99); Mean Platelet Vol. 9.8 fl (6.2-12.0); Platelet Count 287 K/mm3 (150-450); RBC Distribution Width CV 13.3 % (11.6-14.6); Red Blood Count 3.67 M/mm3 (4.2-5.4); White Blood Count 14.6 K/mm3 (4.4-11.0)
[2017-12-22 07:16] LABS: Differential Indicated MANUAL DIFF; POSITIVE COUNT YES; POSITIVE DIFFERENTIAL YES; POSITIVE MORPHOLOGY YES
[2017-12-22 07:21] LABS: Anion Gap 9 (5-15); BUN 12 mg/dL (7-18); BUN/Creat Ratio 14.6 RATIO (10-20); Calcium,Total 8.5 mg/dL (8.5-10.1); Chloride 106 mmol/L (98-107); Creatinine, Serum 0.82 mg/dL (0.55-1.02); EST Glomerular Filtration Rate 74 mL/min (>60); Est Glom Filt Rate - Afr Amer 90 mL/min (>60); Estimated Creatinine Clearance 54.82 ml/min; Glucose 107 mg/dL (74-106); Potassium 3.8 mmol/L (3.5-5.1); Sodium Level 140 mmol/L (136-145)
[2017-12-22] MEDS: Enoxaparin 30 MG/0.3 ML Syringe SC (08:36)
[2017-12-22] MEDS: amLODIPine 10 MG Tablet PO (08:37)
[2017-12-22] MEDS: proMETHazine 25 MG/ML Syringe 12.5 MG IV (08:37)
[2017-12-22] MEDS: Ceftriaxone 1 GM/50 ML BAG IV (08:38)
[2017-12-22 08:44] LABS: Basophil 1 % (0-1); Eosinophil 1 % (0-5); Lymphocyte 9 % (19-41); Monocyte 7 % (0-10); Myelocyte 2 (0-0); Neutrophil-Segmented 78 % (47-70); Plasma Cell 2 %; Total Cells Counted 100 (MANUAL DIFF)
[2017-12-22 08:45] LABS: Absolute Neutrophil Count 11.4 X10^3/uL (2.0-7.7); Platelet Estimate ADEQUATE (ADEQ); Red Cell Morphology NORM C+C NORMAL (NORM C&C)
[2017-12-22 08:46] LABS: Absolute Lymphocyte Count 1.31 X10^3/ul (0.83-4.51)
--- NOTE | 2017-12-22 10:58 | PCM.PN.HOSP ---
Patient Problems: Active and Suspected Problems Sepsis (Acute) UTI (urinary tract infection) (Acute) YONIS (acute kidney injury) (Acute) Bacteremia (Acute) Subjective: Feels good. Had a headache last night, but none today. Vitals/I&O's: Vital Signs Temp Pulse Resp BP Pulse Ox 37.1 C 73 18 175/94 H 98 12/22/17 08:30 12/22/17 08:30 12/22/17 08:30 12/22/17 08:30 12/22/17 08:30 Oxygen Delivery Method Room Air Weight: 89.1 kg Body Mass Index (BMI) 35.9 Intake and Output for Last 24 Hours 12/20/17 12/21/17 12/22/17 23:59 23:59 23:59 Intake Total 2139 / 2139 Output Total 2200 / 1550 Balance -61 / 589 General: Alert, No apparent distress, - - up at side of bed. HEENT: Atraumatic, Normocephalic Oral: Moist Mucosa, No Gingival or Mucosal Lesions/ Ulcerations Neck: No Nodes, Thyroid Normal Size and Texture Lungs: Clear to auscultation, Normal air movement, No rhonchi, No wheeze Cardiovascular: Regular rate, Regular Rhythm, Normal S1, Normal S2, No murmurs Abdomen: Bowel Sounds Present, Soft, Non Tender, Non-Distended, No Hepato-splenomegaly, - - no CVA tenderness. Extremities: No clubbing, No edema, No Calf Tenderness Skin: No rashes, No breakdown Psych/Mental Status: Normal Affect, Appropriate Laboratory Results 12/22/17 05:54: WBC 14.6 H, RBC 3.67 L, Hgb 11.8 L, Hct 33.9 L, MCV 92.4, MCH 32.2 H, MCHC 34.8, RDW 13.3, RDW Differential 45.0 H, Plt Count 287, MPV 9.8, Neut % (Auto) Not Reportable, Absolute Neuts (auto) 11.4 H, Absolute Lymphs (auto) 1.31, Total Counted 100, Neutrophils % (Manual) 78 H, Lymphocytes % (Manual) 9 L, Monocytes % (Manual) 7, Eosinophils % (Manual) 1, Basophils % (Manual) 1, Myelocytes % 2 H, Plasma Cell % (Manual) 2, Diff Path Review May foll, Platelet Estimate ADEQUATE, RBC Morphology NORM C+C 12/22/17 05:54: Sodium 140, Potassium 3.8, Chloride 106, Carbon Dioxide 25.0, Anion Gap 9, BUN 12, Creatinine 0.82, Estim Creat Clear Calc 54.82, Est GFR (MDRD) Af Amer 90, Est GFR (MDRD) Non-Af 74, BUN/Creatinine Ratio 14.6, Glucose 107 H, Calcium 8.5 Current Medications Acetaminophen (Tylenol) 650 mg PO Q6H PRN PRN PRN Reason: Mild Pain (scale 0-3)/T>100.7 Last Admin: 12/22/17 08:38 Dose: 650 mg Al Hydroxide/Mg Hydroxide (Mylanta Ii) 30 ml PO Q6H PRN PRN PRN Reason: Gastric burning Albuterol Sulfate (Ventolin Aerosols) 2.5 mg INHALATION Q2H PRN PRN PRN Reason: Dyspnea, wheezing Albuterol/Ipratropium (Duoneb) 3 ml INHALATION Q6HWA.RT [facility] Last Admin: 12/22/17 07:15 Dose: Not Given Amlodipine Besylate (Norvasc) 10 mg PO DAILY [facility] Last Admin: 12/22/17 08:37 Dose: 10 mg Cyclobenzaprine HCl (Flexeril) 10 mg PO TID PRN PRN PRN Reason: muscle strain Last Admin: 12/22/17 08:37 Dose: 10 mg Enoxaparin Sodium (Lovenox) 30 mg SC DAILY@1000 [facility] Last Admin: 12/22/17 08:36 Dose: 30 mg Ceftriaxone Sodium (Rocephin) 1 gm in 50 mls @ 100 mls/hr IV Q24 [facility] Last Admin: 12/22/17 08:38 Dose: 100 mls/hr Lisinopril (Zestril) 40 mg PO DAILY [facility] Magnesium Hydroxide (Milk Of Magnesia) 30 ml PO DAILY PRN PRN PRN Reason: Constipation Nicotine (Nicoderm Cq (Pbkc)) 7 mg TRANSDERM. DAILY [facility] Last Admin: 12/22/17 08:36 Dose: 7 mg Nutritional Formula (Lactose Free) (Ensure Enlive) 120 ml PO 4X/DAY [facility] Last Admin: 12/22/17 08:58 Dose: Not Given Nystatin (Mycostatin Powder) 1 applic TOPICAL TID [facility] PRN Reason: Protocol Last Admin: 12/22/17 06:05 Dose: Not Given Ondansetron HCl (Zofran) 4 mg IV Q8H PRN PRN PRN Reason: NAUSEA Last Admin: 12/22/17 02:18 Dose: 4 mg Promethazine HCl (Phenergan) 12.5 mg IV Q6H PRN PRN PRN Reason: NAUSEA/VOMITING Last Admin: 12/22/17 08:37 Dose: 12.5 mg Sertraline HCl (Zoloft) 50 mg PO DAILY [facility] Last Admin: 12/22/17 08:59 Dose: Not Given Sodium Chloride () 5 - 30 ml IV UD PRN PRN Reason: SALINE FLUSH Last Admin: 12/22/17 08:37 Dose: 20 ml Zolpidem Tartrate (Ambien (Generic)) 5 mg PO QHS PRN PRN Reason: INSOMNIA Medical Necessity - Tobacco Use Smoking Status: Current every day smoker Tobacco Use: Cigarettes Assessment/Plan All Active Problems Sepsis (Acute) UTI (urinary tract infection) (Acute) YONIS (acute kidney injury) (Acute) Bacteremia (Acute) Acute exacerbation of chronic obstructive pulmonary disease (COPD) (Resolved) 1. UTI on CTX E. coli 2. Sepsis POA 2/2 UTI and bacteremia 3. Bacteremia likely due to UTI follow up cultures from repeat blood cultures on the if repeat cultures are positive, then echo and ID consult. 4. Migraine maybe caffeine-withdrawal headache tylenol, NSAIDs resolved 5. YONIS improved monitor 6. DVT proph: LMWH. 7. Disposition: anticipate discharge in next 24-48h. Code Visit Inpatient E&M: 45777 Subs Hosp L2
--- NOTE | 2017-12-22 11:03 | PN_ITS ---
Patient Problems: Active and Suspected Problems Sepsis (Acute) UTI (urinary tract infection) (Acute) YONIS (acute kidney injury) (Acute) Bacteremia (Acute) Subjective: Feels good. Had a headache last night, but none today. Vitals/I&O's: Vital Signs Temp Pulse Resp BP Pulse Ox 37.1 C 73 18 175/94 H 98 12/22/17 08:30 12/22/17 08:30 12/22/17 08:30 12/22/17 08:30 12/22/17 08:30 Oxygen Delivery Method Room Air Weight: 89.1 kg Body Mass Index (BMI) 35.9 Intake and Output for Last 24 Hours 12/20/17 12/21/17 12/22/17 23:59 23:59 23:59 Intake Total 2139 / 2139 Output Total 2200 / 1550 Balance -61 / 589 General: Alert, No apparent distress, - - up at side of bed. HEENT: Atraumatic, Normocephalic Oral: Moist Mucosa, No Gingival or Mucosal Lesions/ Ulcerations Neck: No Nodes, Thyroid Normal Size and Texture Lungs: Clear to auscultation, Normal air movement, No rhonchi, No wheeze Cardiovascular: Regular rate, Regular Rhythm, Normal S1, Normal S2, No murmurs Abdomen: Bowel Sounds Present, Soft, Non Tender, Non-Distended, No Hepato- splenomegaly, - - no CVA tenderness. Extremities: No clubbing, No edema, No Calf Tenderness Skin: No rashes, No breakdown Psych/Mental Status: Normal Affect, Appropriate Laboratory Results 12/22/17 05:54: WBC 14.6 H, RBC 3.67 L, Hgb 11.8 L, Hct 33.9 L, MCV 92.4, MCH 32.2 H, MCHC 34.8, RDW 13.3, RDW Differential 45.0 H, Plt Count 287, MPV 9.8, Neut % (Auto) Not Reportable, Absolute Neuts (auto) 11.4 H, Absolute Lymphs ( auto) 1.31, Total Counted 100, Neutrophils % (Manual) 78 H, Lymphocytes % ( Manual) 9 L, Monocytes % (Manual) 7, Eosinophils % (Manual) 1, Basophils % ( Manual) 1, Myelocytes % 2 H, Plasma Cell % (Manual) 2, Diff Path Review May foll , Platelet Estimate ADEQUATE, RBC Morphology NORM C+C 12/22/17 05:54: Sodium 140, Potassium 3.8, Chloride 106, Carbon Dioxide 25.0, Anion Gap 9, BUN 12, Creatinine 0.82, Estim Creat Clear Calc 54.82, Est GFR ( MDRD) Af Amer 90, Est GFR (MDRD) Non-Af 74, BUN/Creatinine Ratio 14.6, Glucose 107 H, Calcium 8.5 Current Medications Acetaminophen (Tylenol) 650 mg PO Q6H PRN PRN PRN Reason: Mild Pain (scale 0-3)/T>100.7 Last Admin: 12/22/17 08:38 Dose: 650 mg Al Hydroxide/Mg Hydroxide (Mylanta Ii) 30 ml PO Q6H PRN PRN PRN Reason: Gastric burning Albuterol Sulfate (Ventolin Aerosols) 2.5 mg INHALATION Q2H PRN PRN PRN Reason: Dyspnea, wheezing Albuterol/Ipratropium (Duoneb) 3 ml INHALATION Q6HWA.RT [facility] Last Admin: 12/22/17 07:15 Dose: Not Given Amlodipine Besylate (Norvasc) 10 mg PO DAILY [facility] Last Admin: 12/22/17 08:37 Dose: 10 mg Cyclobenzaprine HCl (Flexeril) 10 mg PO TID PRN PRN PRN Reason: muscle strain Last Admin: 12/22/17 08:37 Dose: 10 mg Enoxaparin Sodium (Lovenox) 30 mg SC DAILY@1000 [facility] Last Admin: 12/22/17 08:36 Dose: 30 mg Ceftriaxone Sodium (Rocephin) 1 gm in 50 mls @ 100 mls/hr IV Q24 [facility] Last Admin: 12/22/17 08:38 Dose: 100 mls/hr Lisinopril (Zestril) 40 mg PO DAILY [facility] Magnesium Hydroxide (Milk Of Magnesia) 30 ml PO DAILY PRN PRN PRN Reason: Constipation Nicotine (Nicoderm Cq (Pbkc)) 7 mg TRANSDERM. DAILY [facility] Last Admin: 12/22/17 08:36 Dose: 7 mg Nutritional Formula (Lactose Free) (Ensure Enlive) 120 ml PO 4X/DAY [facility] Last Admin: 12/22/17 08:58 Dose: Not Given Nystatin (Mycostatin Powder) 1 applic TOPICAL TID [facility] PRN Reason: Protocol Last Admin: 12/22/17 06:05 Dose: Not Given Ondansetron HCl (Zofran) 4 mg IV Q8H PRN PRN PRN Reason: NAUSEA Last Admin: 12/22/17 02:18 Dose: 4 mg Promethazine HCl (Phenergan) 12.5 mg IV Q6H PRN PRN PRN Reason: NAUSEA/VOMITING Last Admin: 12/22/17 08:37 Dose: 12.5 mg Sertraline HCl (Zoloft) 50 mg PO DAILY [facility] Last Admin: 12/22/17 08:59 Dose: Not Given Sodium Chloride () 5 - 30 ml IV UD PRN PRN Reason: SALINE FLUSH Last Admin: 12/22/17 08:37 Dose: 20 ml Zolpidem Tartrate (Ambien (Generic)) 5 mg PO QHS PRN PRN Reason: INSOMNIA Medical Necessity - Tobacco Use Smoking Status: Current every day smoker Tobacco Use: Cigarettes Assessment/Plan All Active Problems Sepsis (Acute) UTI (urinary tract infection) (Acute) YONIS (acute kidney injury) (Acute) Bacteremia (Acute) Acute exacerbation of chronic obstructive pulmonary disease (COPD) (Resolved) 1. UTI * on CTX * E. coli 2. Sepsis * POA * 2/2 UTI and bacteremia 3. Bacteremia * likely due to UTI * follow up cultures from * repeat blood cultures on the * if repeat cultures are positive, then echo and ID consult. 4. Migraine * maybe caffeine-withdrawal headache * tylenol, NSAIDs * resolved 5. YONIS * improved * monitor 6. DVT proph: LMWH. 7. Disposition: * anticipate discharge in next 24-48h. Code Visit Inpatient E&M: [id number] Subs Hosp L2
--- NOTE | 2017-12-22 12:31 | EKG12_ITS ---
Test Reason : ARRYTHMIA Blood Pressure : / mmHG Vent. Rate : 074 BPM Atrial Rate : 074 BPM P-R Int : 136 ms QRS Dur : 082 ms QT Int : 388 ms P-R-T Axes : 065 072 061 degrees QTc Int : 430 ms Normal sinus rhythm Septal infarct , age undetermined Abnormal ECG When compared with ECG of 20-DEC-2017 15:40, MANUAL COMPARISON REQUIRED, DATA IS UNCONFIRMED Confirmed by ANDREW JONES, BRITTANIE ([id number]), newspaper editor managing HITESH MICHELLE ([id number]) on 12/24/2017 2:34:09 PM Referred By: Britni Bowman Confirmed By:BRITTANIE MORALES MD
[2017-12-22 13:39] LABS: Pathologist Review Reviewed
[2017-12-22] MEDS: Lisinopril 40 MG Tablet PO (14:19)
[2017-12-22] MEDS: Sertraline 50 MG Tablet PO (16:00)
[2017-12-22] MEDS: Nystatin Powder 15gm Bottle 1 APPLIC TOPICAL ×2 (16:03→20:33)
[2017-12-22] MEDS: Zolpidem Tartrate 5 MG Tablet PO (22:12)
[2017-12-23 02:29] VITALS: PULSE 96
[2017-12-23 04:20] VITALS: BP 146/82; PULSE 102; RESP 18; TEMP 37.1; O2SAT 93
[2017-12-23 07:00] VITALS: O2SAT 96
[2017-12-23 07:12] LABS: Anion Gap 9 (5-15); BUN 14 mg/dL (7-18); BUN/Creat Ratio 16.8 RATIO (10-20); Calcium,Total 8.6 mg/dL (8.5-10.1); Chloride 104 mmol/L (98-107); Creatinine, Serum 0.83 mg/dL (0.55-1.02); EST Glomerular Filtration Rate 73 mL/min (>60); Est Glom Filt Rate - Afr Amer 89 mL/min (>60); Estimated Creatinine Clearance 54.16 ml/min; Glucose 102 mg/dL (74-106); Potassium 4.1 mmol/L (3.5-5.1); Sodium Level 138 mmol/L (136-145)
[2017-12-23 07:46] LABS: Hematocrit 34.8 % (37-47); Hemoglobin 12.1 g/dl (12.0-15.0); Mean Corp Hgb Conc 34.8 g/gl (32-36); Mean Corpuscular Hgb 32.1 pg (27.0-32.0); Mean Corpuscular Volume 92.3 fL (81-99); Mean Platelet Vol. 9.7 fl (6.2-12.0); Platelet Count 384 K/mm3 (150-450); RBC Distribution Width CV 12.8 % (11.6-14.6); RBC Distribution Width SD 41.8 fl (35.1-43.9); Red Blood Count 3.77 M/mm3 (4.2-5.4); White Blood Count 14.4 K/mm3 (4.4-11.0)
[2017-12-23 07:51] LABS: Differential Indicated MANUAL DIFF; POSITIVE COUNT YES; POSITIVE DIFFERENTIAL NO; POSITIVE MORPHOLOGY YES
[2017-12-23 08:15] LABS: Eosinophil 1 % (0-5); Lymphocyte 18 % (19-41); Metamyelocyte 5 % (0-1); Monocyte 8 % (0-10); Myelocyte 1 (0-0); Neutrophil-Band 1 % (0-5); Neutrophil-Segmented 66 % (47-70); Nucleated Red Bld Cells,Manual 1 % (0-5); Total Cells Counted 100 (MANUAL DIFF)
[2017-12-23 08:16] LABS: Platelet Estimate ADEQUATE (ADEQ); Red Cell Morphology NORM C+C NORMAL (NORM C&C)
[2017-12-23 08:17] LABS: Absolute Neutrophil Count 9.6 X10^3/uL (2.0-7.7)
[2017-12-23 10:00] VITALS: BP 153/107; PULSE 96; RESP 16; TEMP 37.1; O2SAT 96
[2017-12-23] MEDS: Lisinopril 40 MG Tablet PO (10:08)
[2017-12-23] MEDS: Enoxaparin 30 MG/0.3 ML Syringe SC (10:08)
[2017-12-23] MEDS: amLODIPine 10 MG Tablet PO (10:08)
[2017-12-23] MEDS: Ceftriaxone 1 GM/50 ML BAG IV (10:15)
[2017-12-23] MEDS: 0.9% NaCl Peripheral Flush Adult/Peds IV (10:16)
--- NOTE | 2017-12-23 10:30 | PCM.PN.HOSP ---
Patient Problems: Active and Suspected Problems Bacteremia (Acute) Sepsis (Acute) UTI (urinary tract infection) (Acute) YONIS (acute kidney injury) (Acute) Subjective: Feels good. No new events. Vitals/I&O's: Vital Signs Temp Pulse Resp BP Pulse Ox 37.1 C 96 16 153/107 H 96 12/23/17 10:00 12/23/17 10:00 12/23/17 10:00 12/23/17 10:00 12/23/17 10:00 Oxygen Delivery Method Room Air Weight: 89.1 kg Body Mass Index (BMI) 35.9 Intake and Output for Last 24 Hours 12/21/17 12/22/17 12/23/17 23:59 23:59 23:59 Intake Total 2139 / 2139 Output Total 2200 / 1550 Balance -61 / 589 General: Alert, Cooperative, No apparent distress HEENT: Atraumatic, Normocephalic Oral: Moist Mucosa, No Gingival or Mucosal Lesions/ Ulcerations Neck: No Nodes, Thyroid Normal Size and Texture Lungs: Clear to auscultation, Normal air movement, No rhonchi, No wheeze Cardiovascular: Regular rate, Regular Rhythm, Normal S1, Normal S2, No murmurs Abdomen: Bowel Sounds Present, Soft, Non Tender, Non-Distended, No Hepato-splenomegaly Extremities: No edema, No Calf Tenderness Skin: No rashes, No breakdown Psych/Mental Status: Normal Affect, Appropriate Laboratory Results 12/22/17 05:54: Diff Path Review Reviewed 12/22/17 12:47: Troponin I < 0.015 12/22/17 15:05: Troponin I < 0.015 12/22/17 18:34: Troponin I < 0.015 12/22/17 21:15: Troponin I < 0.015 12/23/17 06:05: WBC 14.4 H, RBC 3.77 L, Hgb 12.1, Hct 34.8 L, MCV 92.3, MCH 32.1 H, MCHC 34.8, RDW 12.8, RDW Differential 41.8, Plt Count 384, MPV 9.7, Neut % (Auto) Not Reportable, Absolute Neuts (auto) 9.6 H, Absolute Lymphs (auto) 2.60, Total Counted 100, Neutrophils % (Manual) 66, Band Neutrophils % 1, Lymphocytes % (Manual) 18 L, Monocytes % (Manual) 8, Eosinophils % (Manual) 1, Metamyelocytes % 5 H, Myelocytes % 1 H, Nucleated RBCs/100 WBC 1, Diff Path Review May foll, Platelet Estimate ADEQUATE, RBC Morphology NORM C+C 12/23/17 06:05: Sodium 138, Potassium 4.1, Chloride 104, Carbon Dioxide 25.0, Anion Gap 9, BUN 14, Creatinine 0.83, Estim Creat Clear Calc 54.16, Est GFR (MDRD) Af Amer 89, Est GFR (MDRD) Non-Af 73, BUN/Creatinine Ratio 16.8, Glucose 102, Calcium 8.6 Current Medications Acetaminophen (Tylenol) 650 mg PO Q6H PRN PRN PRN Reason: Mild Pain (scale 0-3)/T>100.7 Last Admin: 12/22/17 14:18 Dose: 650 mg Al Hydroxide/Mg Hydroxide (Mylanta Ii) 30 ml PO Q6H PRN PRN PRN Reason: Gastric burning Albuterol Sulfate (Ventolin Aerosols) 2.5 mg INHALATION Q2H PRN PRN PRN Reason: Dyspnea, wheezing Albuterol/Ipratropium (Duoneb) 3 ml INHALATION Q6HWA.RT [facility] Last Admin: 12/23/17 07:00 Dose: Not Given Amlodipine Besylate (Norvasc) 10 mg PO DAILY [facility] Last Admin: 12/23/17 10:08 Dose: 10 mg Cyclobenzaprine HCl (Flexeril) 10 mg PO TID PRN PRN PRN Reason: muscle strain Last Admin: 12/22/17 08:37 Dose: 10 mg Enoxaparin Sodium (Lovenox) 30 mg SC DAILY@1000 [facility] Last Admin: 12/23/17 10:08 Dose: 30 mg Ceftriaxone Sodium (Rocephin) 1 gm in 50 mls @ 100 mls/hr IV Q24 [facility] Last Admin: 12/23/17 10:15 Dose: 100 mls/hr Lisinopril (Zestril) 40 mg PO DAILY [facility] Last Admin: 12/23/17 10:08 Dose: 40 mg Magnesium Hydroxide (Milk Of Magnesia) 30 ml PO DAILY PRN PRN PRN Reason: Constipation Nicotine (Nicoderm Cq (Pbkc)) 7 mg TRANSDERM. DAILY [facility] Last Admin: 12/23/17 10:09 Dose: 7 mg Nutritional Formula (Lactose Free) (Ensure Enlive) 120 ml PO 4X/DAY [facility] Last Admin: 12/23/17 10:21 Dose: Not Given Nystatin (Mycostatin Powder) 1 applic TOPICAL TID LIVAN PRN Reason: Protocol Last Admin: 12/23/17 05:20 Dose: Not Given Ondansetron HCl (Zofran) 4 mg IV Q8H PRN PRN PRN Reason: NAUSEA Last Admin: 12/22/17 02:18 Dose: 4 mg Promethazine HCl (Phenergan) 12.5 mg IV Q6H PRN PRN PRN Reason: NAUSEA/VOMITING Last Admin: 12/22/17 08:37 Dose: 12.5 mg Sertraline HCl (Zoloft) 50 mg PO DAILY [facility] Last Admin: 12/22/17 16:00 Dose: 50 mg Sodium Chloride () 5 - 30 ml IV UD PRN PRN Reason: SALINE FLUSH Last Admin: 12/23/17 10:16 Dose: 10 ml Zolpidem Tartrate (Ambien (Generic)) 5 mg PO QHS PRN PRN Reason: INSOMNIA Last Admin: 12/22/17 22:12 Dose: 5 mg Medical Necessity - Tobacco Use Smoking Status: Current every day smoker Tobacco Use: Cigarettes Assessment/Plan All Active Problems Bacteremia (Acute) Sepsis (Acute) UTI (urinary tract infection) (Acute) YONIS (acute kidney injury) (Acute) Acute exacerbation of chronic obstructive pulmonary disease (COPD) (Resolved) 1. UTI on CTX E. coli, sensitive to Cipro 2. Sepsis POA 2/2 UTI and bacteremia 3. Bacteremia 2/2 UTI follow up cultures from repeat blood cultures on the , results pending. If negative after 1 day, then can discharge. if repeat cultures are positive, then echo and ID consult. treat with Cipro for 2 weeks. 4. Migraine maybe caffeine-withdrawal headache tylenol, NSAIDs resolved 5. YONIS improved monitor 6. DVT proph: LMWH. Code Visit Inpatient E&M: 81673 Subs Hosp L2
--- NOTE | 2017-12-23 10:33 | PN_ITS ---
Patient Problems: Active and Suspected Problems Bacteremia (Acute) Sepsis (Acute) UTI (urinary tract infection) (Acute) YONIS (acute kidney injury) (Acute) Subjective: Feels good. No new events. Vitals/I&O's: Vital Signs Temp Pulse Resp BP Pulse Ox 37.1 C 96 16 153/107 H 96 12/23/17 10:00 12/23/17 10:00 12/23/17 10:00 12/23/17 10:00 12/23/17 10:00 Oxygen Delivery Method Room Air Weight: 89.1 kg Body Mass Index (BMI) 35.9 Intake and Output for Last 24 Hours 12/21/17 12/22/17 12/23/17 23:59 23:59 23:59 Intake Total 2139 / 2139 Output Total 2200 / 1550 Balance -61 / 589 General: Alert, Cooperative, No apparent distress HEENT: Atraumatic, Normocephalic Oral: Moist Mucosa, No Gingival or Mucosal Lesions/ Ulcerations Neck: No Nodes, Thyroid Normal Size and Texture Lungs: Clear to auscultation, Normal air movement, No rhonchi, No wheeze Cardiovascular: Regular rate, Regular Rhythm, Normal S1, Normal S2, No murmurs Abdomen: Bowel Sounds Present, Soft, Non Tender, Non-Distended, No Hepato- splenomegaly Extremities: No edema, No Calf Tenderness Skin: No rashes, No breakdown Psych/Mental Status: Normal Affect, Appropriate Laboratory Results 12/22/17 05:54: Diff Path Review Reviewed 12/22/17 12:47: Troponin I < 0.015 12/22/17 15:05: Troponin I < 0.015 12/22/17 18:34: Troponin I < 0.015 12/22/17 21:15: Troponin I < 0.015 12/23/17 06:05: WBC 14.4 H, RBC 3.77 L, Hgb 12.1, Hct 34.8 L, MCV 92.3, MCH 32.1 H, MCHC 34.8, RDW 12.8, RDW Differential 41.8, Plt Count 384, MPV 9.7, Neut % (Auto) Not Reportable, Absolute Neuts (auto) 9.6 H, Absolute Lymphs (auto ) 2.60, Total Counted 100, Neutrophils % (Manual) 66, Band Neutrophils % 1, Lymphocytes % (Manual) 18 L, Monocytes % (Manual) 8, Eosinophils % (Manual) 1, Metamyelocytes % 5 H, Myelocytes % 1 H, Nucleated RBCs/100 WBC 1, Diff Path Review May foll, Platelet Estimate ADEQUATE, RBC Morphology NORM C+C 12/23/17 06:05: Sodium 138, Potassium 4.1, Chloride 104, Carbon Dioxide 25.0, Anion Gap 9, BUN 14, Creatinine 0.83, Estim Creat Clear Calc 54.16, Est GFR ( MDRD) Af Amer 89, Est GFR (MDRD) Non-Af 73, BUN/Creatinine Ratio 16.8, Glucose 102, Calcium 8.6 Current Medications Acetaminophen (Tylenol) 650 mg PO Q6H PRN PRN PRN Reason: Mild Pain (scale 0-3)/T>100.7 Last Admin: 12/22/17 14:18 Dose: 650 mg Al Hydroxide/Mg Hydroxide (Mylanta Ii) 30 ml PO Q6H PRN PRN PRN Reason: Gastric burning Albuterol Sulfate (Ventolin Aerosols) 2.5 mg INHALATION Q2H PRN PRN PRN Reason: Dyspnea, wheezing Albuterol/Ipratropium (Duoneb) 3 ml INHALATION Q6HWA.RT [facility] Last Admin: 12/23/17 07:00 Dose: Not Given Amlodipine Besylate (Norvasc) 10 mg PO DAILY [facility] Last Admin: 12/23/17 10:08 Dose: 10 mg Cyclobenzaprine HCl (Flexeril) 10 mg PO TID PRN PRN PRN Reason: muscle strain Last Admin: 12/22/17 08:37 Dose: 10 mg Enoxaparin Sodium (Lovenox) 30 mg SC DAILY@1000 [facility] Last Admin: 12/23/17 10:08 Dose: 30 mg Ceftriaxone Sodium (Rocephin) 1 gm in 50 mls @ 100 mls/hr IV Q24 [facility] Last Admin: 12/23/17 10:15 Dose: 100 mls/hr Lisinopril (Zestril) 40 mg PO DAILY [facility] Last Admin: 12/23/17 10:08 Dose: 40 mg Magnesium Hydroxide (Milk Of Magnesia) 30 ml PO DAILY PRN PRN PRN Reason: Constipation Nicotine (Nicoderm Cq (Pbkc)) 7 mg TRANSDERM. DAILY [facility] Last Admin: 12/23/17 10:09 Dose: 7 mg Nutritional Formula (Lactose Free) (Ensure Enlive) 120 ml PO 4X/DAY [facility] Last Admin: 12/23/17 10:21 Dose: Not Given Nystatin (Mycostatin Powder) 1 applic TOPICAL TID LIVAN PRN Reason: Protocol Last Admin: 12/23/17 05:20 Dose: Not Given Ondansetron HCl (Zofran) 4 mg IV Q8H PRN PRN PRN Reason: NAUSEA Last Admin: 12/22/17 02:18 Dose: 4 mg Promethazine HCl (Phenergan) 12.5 mg IV Q6H PRN PRN PRN Reason: NAUSEA/VOMITING Last Admin: 12/22/17 08:37 Dose: 12.5 mg Sertraline HCl (Zoloft) 50 mg PO DAILY [facility] Last Admin: 12/22/17 16:00 Dose: 50 mg Sodium Chloride () 5 - 30 ml IV UD PRN PRN Reason: SALINE FLUSH Last Admin: 12/23/17 10:16 Dose: 10 ml Zolpidem Tartrate (Ambien (Generic)) 5 mg PO QHS PRN PRN Reason: INSOMNIA Last Admin: 12/22/17 22:12 Dose: 5 mg Medical Necessity - Tobacco Use Smoking Status: Current every day smoker Tobacco Use: Cigarettes Assessment/Plan All Active Problems Bacteremia (Acute) Sepsis (Acute) UTI (urinary tract infection) (Acute) YONIS (acute kidney injury) (Acute) Acute exacerbation of chronic obstructive pulmonary disease (COPD) (Resolved) 1. UTI * on CTX * E. coli, sensitive to Cipro 2. Sepsis * POA * 2/2 UTI and bacteremia 3. Bacteremia * 2/2 UTI * follow up cultures from * repeat blood cultures on the , results pending. If negative after 1 day, then can discharge. * if repeat cultures are positive, then echo and ID consult. * treat with Cipro for 2 weeks. 4. Migraine * maybe caffeine-withdrawal headache * tylenol, NSAIDs * resolved 5. YONIS * improved * monitor 6. DVT proph: LMWH. Code Visit Inpatient E&M: 60005 Subs Hosp L2
[2017-12-23 10:35] VITALS: PULSE 76
--- NOTE | 2017-12-23 10:39 | DCINST_ITS ---
- Discharge Diagnoses Current Active Problems: Current Active and Chronic Problems Bacteremia (Acute) Sepsis (Acute) UTI (urinary tract infection) (Acute) YONIS (acute kidney injury) (Acute) You will use the following diet at home:: No restrictions Your food should be the consistency of: Regular Discharge Activity: Return to Normal Activity Call your doctor if you observe: Fever of 101 or Higher, Inability to urinate, - - painful urination Allergies/Adverse Reactions: Allergies codeine Allergy (Verified 11/12/17 17:17) Anaphylaxis CHEST PAIN fentanyl Allergy (Verified 11/12/17 17:17) Rash ketorolac tromethamine [From Toradol] Allergy (Verified 11/12/17 17:17) Hives metoclopramide HCl [From Reglan] Allergy (Verified 11/12/17 17:17) Swelling promethazine HCl [From Phenergan] Allergy (Verified 11/12/17 17:17) Itching cyclobenzaprine HCl [From Flexeril] Adverse Reaction (Verified 11/12/17 17:17) Other MAKES LEGS AND ARMS FEEL LIKE THEY'RE CRAWLING diphenhydramine HCl [From Benadryl] Adverse Reaction (Verified 11/12/17 17:17) Other MAKES LEGS CRAWL Penicillins Adverse Reaction (Verified 11/12/17 17:17) Nausea Sulfa (Sulfonamide Antibiotics) Adverse Reaction (Verified 11/12/17 17:17) Nausea Medications to take at Discharge Amlodipine [Norvasc] 10 mg PO DAILY 10/05/16 Lisinopril [Zestril] 40 mg PO DAILY 10/05/16 Sertraline HCl [Zoloft] 50 mg PO DAILY 01/22/17 Zolpidem Tartrate [Ambien] 10 mg PO QHS PRN 12/20/17 Ciprofloxacin [Cipro] 500 mg PO BID #24 tab 12/23/17 Fluconazole [Diflucan] 150 mg PO X1 PRN #1 tab 12/23/17 The following prescriptions were given: Fluconazole [Diflucan] 150 mg PO X1 PRN #1 tab PRN Reason: yeast infection Ciprofloxacin [Cipro] 500 mg PO BID #24 tab Primary Care Physician: Alonzo Hahn DO [Primary Care Provider] - Within 2 Weeks Test Results: Test results from this visit will be discussed in further detail at your follow- up appointment, if applicable. Proposed Discharge Date: 12/23/17
--- NOTE | 2017-12-23 10:40 | DS.PCM_ITS ---
Discharge Date and Diagnosis - Problem List Patient Problems: Active and Suspected Problems Bacteremia (Acute) Sepsis (Acute) UTI (urinary tract infection) (Acute) YONIS (acute kidney injury) (Acute) Date of Admission: 12/20/17 Date of Discharge: 12/23/17 - Primary Discharge Diagnosis Active and Suspected Problems Bacteremia (Acute) Sepsis (Acute) UTI (urinary tract infection) (Acute) YONIS (acute kidney injury) (Acute) - Secondary Discharge Diagnosis Chronic Problems Depression (Chronic) COPD (chronic obstructive pulmonary disease) (Chronic) GERD (gastroesophageal reflux disease) (Chronic) OA (osteoarthritis) of knee (Chronic) HTN (hypertension) (Chronic) Mixed anxiety and depressive disorder (Chronic) Obesity (Chronic) Nicotine dependence (Chronic) history of polysubstance abuse (Chronic) Hospital Course and Treatment Operations: None Procedures: None Summary of Care Provided: The patient is a 62 year old F presents with sepsis, UTI and bacteremia. 1. UTI * on CTX * E. coli, sensitive to Cipro 2. Sepsis * POA * 2/2 UTI and bacteremia 3. Bacteremia * 2/2 UTI * follow up cultures from * repeat blood cultures on the , results pending. If negative after 1 day, then can discharge. * if repeat cultures are positive, then echo and ID consult. * treat with Cipro for 2 weeks. 4. Migraine * maybe caffeine-withdrawal headache * tylenol, NSAIDs * resolved 5. YONIS * improved * monitor[] Discharge Diet: No Restrictions Discharge Activity: Return to Normal Activity Call your doctor if you observe: Fever of 101 or Higher, Inability to urinate, - - painful urination Home Medications: Medications to take at Discharge Amlodipine [Norvasc] 10 mg PO DAILY 10/05/16 Lisinopril [Zestril] 40 mg PO DAILY 10/05/16 Sertraline HCl [Zoloft] 50 mg PO DAILY 01/22/17 Zolpidem Tartrate [Ambien] 10 mg PO QHS PRN 12/20/17 Ciprofloxacin [Cipro] 500 mg PO BID #24 tab 12/23/17 Fluconazole [Diflucan] 150 mg PO X1 PRN #1 tab 12/23/17 Following Prescrptions Were Given to Patient: Fluconazole [Diflucan] 150 mg PO X1 PRN #1 tab PRN Reason: yeast infection Ciprofloxacin [Cipro] 500 mg PO BID #24 tab Primary Care Physician: Alonzo Hahn DO [Primary Care Provider] - Within 2 Weeks Disposition: Home Minutes spent on discharge:: 32 Patient Condition:: Good Medical Necessity - Tobacco Use Smoking Status: Current every day smoker Tobacco Use: Cigarettes Meaningful Use Info Meaningful Use Diagnoses (Choose all that apply): None applicable Code Visit Inpatient E&M: 66752 Disch Hosp
[2017-12-23] MEDS: Acetaminophen 325 MG Tablet 650 MG PO (12:33)
[2017-12-23 13:50] LABS: Pathologist Review Reviewed
[2017-12-23] MEDS: Nystatin Powder 15gm Bottle 1 APPLIC TOPICAL (15:18)
[2017-12-23 15:30] VITALS: BP 158/94; PULSE 53; RESP 18; TEMP 37; O2SAT 94
--- NOTE | 2017-12-24 16:14 | CASEMGMT ---
ANAYA CRUZ DC PHONE CALL. DC DATE: 12/23/17 DISPOSITION: HOME LACE/STRATA: 17/07 Intro role of CM to patient via phone. Pt states she understands her dc instructions and medications. No questions. ANAYA CRUZ inquired re: quality improvement- pt states everything was wonderful. No further questions noted. ANAYA CRUZ thanked her for using [facility]. Manju COLLAZON ANAYA ACM
== END 2017-12-23 16:00 | disposition home or self-care (01) | DRG 463 ==
LOC: ED 18:06 → MS3 19:14
PROVIDERS: Admitting Provider Family Medicine; Emergency Provider Emergency Medicine; Family Provider Family Medicine; PCP Family Medicine
DX: N39.0 Urinary tract infection, site not specified (principal); N17.9 Acute kidney failure, unspecified; J44.9 Chronic obstructive pulmonary disease, unspecified; E87.6 Hypokalemia; F32.9 Major depressive disorder, single episode, unspecified; K21.9 Gastro-esophageal reflux disease without esophagitis; I10 Essential (primary) hypertension; G43.909 Migraine, unspecified, not intractable, without status migrainosus; F17.210 Nicotine dependence, cigarettes, uncomplicated
CPT/HCPCS: 36415; 51702; 80048; 80053; 81001; 83605; 84484; 85025; 85610; 85730; 87040; 87077; 87086; 87088; 87186; 93005; 94640; 97802; 99285; 99406; J7030; A4216; J2405

== ENCOUNTER 2018-01-17 08:40 | Emergency (ER) | payer MEDICAID, SELFPAY ==
[2018-01-17 08:41] VITALS: BP 175/83; PULSE 88; RESP 16; TEMP 36.9; O2SAT 98; BMI 35.1
--- NOTE | 2018-01-17 08:48 | RAD_ITS ---
STUDY: X-RAY - CERVICAL SPINE REASON FOR EXAM: Female, 62 years old. Neck pain after fall TECHNIQUE: 3 view(s) of the cervical spine were obtained. COMPARISON: None FINDINGS: Normal anterior atlantoaxial articulation. Normal odontoid process. Normal cervical lordosis. There is multi-level endplate spondylosis. Normal disc space heights. Normal visualized intervertebral neuroforamina. The soft tissue structures are unremarkable. RAD/Cerv Spine 2 or 3 Views IMPRESSION: No acute findings Electronically Signed: Eulalio Fuentes DO at 10:09 EDT Tel , Service support ,
--- NOTE | 2018-01-17 08:48 | RAD_ITS ---
STUDY: X-RAY - THORACIC SPINE REASON FOR EXAM: Female, 62 years old. Back pain after fall TECHNIQUE: 3 view(s) of the thoracic spine were obtained. COMPARISON: None. FINDINGS: Normal kyphosis of the thoracic spine. There is no substantial scoliosis. There is multilevel endplate spondylosis of the thoracic vertebrae. There is multilevel disc space narrowing of the thoracic spine. The soft tissue structures are unremarkable. RAD/Thoracic Spine 3 Views IMPRESSION: Degenerative changes without acute findings Electronically Signed: Eulalio Fuentes DO at 10:09 EDT Tel , Service support ,
--- NOTE | 2018-01-17 08:48 | RAD_ITS ---
STUDY: X-RAY - LEFT SHOULDER REASON FOR EXAM: Female, 62 years old. Left shoulder pain after forward fall TECHNIQUE: 5 view(s) of the shoulder. COMPARISON: None. FINDINGS: There is mild degenerative arthrosis of the glenohumeral articulation. There is degenerative arthrosis of the acromioclavicular joint without inferior osseous spur formation. Normal acromion. Normal humeral head and visualized proximal humerus. The soft tissue structures are unremarkable. There is no demonstrated fracture. Normal visualized pulmonary apex. RAD/Shoulder min 2 Views IMPRESSION: No acute findings. Degenerative changes Electronically Signed: Eulalio Fuentes DO at 10:08 EDT Tel , Service support ,
--- NOTE | 2018-01-17 08:51 | ED.VISSUMM ---
- ER Visit Summary Date of Service: 01/17/18 Chief Complaint: Fall History of Present Illness: The patient is a 62 F who fell about a week ago. The patient tripped at her home and fell onto her left shoulder. She complains of pain to her left shoulder and lower neck. She has tried igxm-jso-adctypt remedies with no relief. Worse with use and movement. The pain radiates down her left arm. Nothing seems to make it better. No other associated symptoms. Physical Examination: Vital signs unremarkable except blood pressure is 175/83. Nontoxic and in no acute distress. Alert and oriented. Head and neck atraumatic inspection. She does have some C7 region tenderness to palpation. Left shoulder diffusely tender to palpation. Good range of motion. Neurovascular intact distally. No deformity. The remainder of her exam is unremarkable. Test Results: X-rays of the cervical and thoracic spine pending. X-rays of the left shoulder pending. Emergency Department Course and Treatment: Patient treated with [place] while awaiting results. X-rays unremarkable. I did check her prescription report. No active controlled substances. She was given a home pack for 4 [place]. Follow-up with primary care for further pain control and outpatient management. Treatment Plan: As above Disposition: Discharged Impression: 1. Cervical strain 2. Left shoulder strain This note was generated with [employer] dictation software. It may contain incorrect words, spelling, and punctuation that were not noted in review of the chart prior to signing ED Disposition - Plan for ED Patient: Chief Complaint: Fall Referrals: Alonzo Hahn DO [Primary Care Provider] -
[2018-01-17] MEDS: HYDROcodone Bitartrate/Apap 5/325 Tablet PO ×2 (08:55→10:38)
--- NOTE | 2018-01-17 10:20 | ED.DEP ---
ED Disposition - Plan for ED Patient: Chief Complaint: Fall Instructions: ED Mechanical Fall Referrals: Alonzo Hahn DO [Primary Care Provider] -
[2018-01-17 10:41] VITALS: BP 156/82; PULSE 83; RESP 16; O2SAT 98
== END 2018-01-17 10:42 | disposition home or self-care (01) ==
LOC: ED 09:09
PROVIDERS: Emergency Provider Emergency Medicine; Family Provider Family Medicine; PCP Family Medicine
DX: S16.1XXA Strain of muscle, fascia and tendon at neck level, initial encounter (principal); S46.912A Strain of unspecified muscle, fascia and tendon at shoulder and upper arm level, left arm, initial encounter; W01.10XA Fall on same level from slipping, tripping and stumbling with subsequent striking against unspecified object, initial encounter; Y93.9 Activity, unspecified; Y92.009 Unspecified place in unspecified non-institutional (private) residence as the place of occurrence of the external cause; Y99.9 Unspecified external cause status; I10 Essential (primary) hypertension; J44.9 Chronic obstructive pulmonary disease, unspecified; Z72.0 Tobacco use
CPT/HCPCS: 72040; 72072; 73030; 99285